=== PATIENT | female | born 1980 | race African-American/Black ===

== ENCOUNTER 2017-02-16 20:05 | Emergency (ER) | payer OTHER ==
[~2017-02-16] VITALS: Ht 165.1 cm; Wt 63.5 kg
[~2017-02-16 20:05] MED LIST: ACID CONTROL20 MG PO; BACTRIM DS TAB1 EACH PO; COLACE 100 MG100 MG PO; GLYCOLAX POWDER17 G1 PO; HYDROCODONE-AP1 EAC6 PO; MEDROL DOSPAK21 TA1; NORCO 5-325 TA1 EACH PO
[2017-02-16 20:26] VITALS: BP 118/77
[2017-02-16] MEDS ORDERED: NAPROSYN500 MG PO (21:24)
[2017-02-16] MEDS ORDERED: NORFLEX100 MG PO (21:24)
== END 2017-02-16 21:32 | disposition home or self-care (01) ==
LOC: ER 20:05
DX: S16.1XXA Strain of muscle, fascia and tendon at neck level, initial encounter (principal); S39.012A Strain of muscle, fascia and tendon of lower back, initial encounter; G44.209 Tension-type headache, unspecified, not intractable; V89.2XXA Person injured in unspecified motor-vehicle accident, traffic, initial encounter; Y93.I9 Activity, other involving external motion; Y92.488 Other paved roadways as the place of occurrence of the external cause; Y99.8 Other external cause status